=== PATIENT | female | born 1995 | race Caucasian/White ===

== ENCOUNTER 2017-03-29 03:43 | Emergency (ER) | payer MEDICAID | END 2017-03-29 04:00 | disposition left against medical advice (07) | LOC: ER 03:47 | DX: Z00.8 Encounter for other general examination (principal); Z53.21 Procedure and treatment not carried out due to patient leaving prior to being seen by health care provider ==

== ENCOUNTER 2020-08-06 08:39 | Emergency (ER) | payer MEDICAID ==
[~2020-08-06] VITALS: Ht 165.1 cm; Wt 68.0 kg
[2020-08-06 09:13] LABS: BASOPHILS % 0.8 % (0.0-2.0); EOSINOPHILS % 2.9 % (0.0-5.0); HEMATOCRIT. 39.9 % (36.0-48.0); HEMOGLOBIN. 13.5 g/dL (12.0-16.0); LYMPHOCYTES % 25.7 % (20.0-50.0); MEAN CORPUSCULAR HEMOGLOBIN 32.7 pg (28.0-32.0); MEAN CORPUSCULAR VOLUME 97.1 fL (81.0-99.0); MEAN PLATELET VOLUME 8.6 fl (7.4-10.4); MONOCYTES % 5.4 % (2.0-8.0); NEUTROPHILS % 65.2 % (40.0-76.0); PLATELET 309 x1000/uL (130-400); RED BLOOD CELL COUNT 4.11 mill/uL (4.2-5.4); RED CELL DISTRIBUTION WIDTH 12.7 % (11.6-14.6)
[2020-08-06 09:23] LABS: CHLORIDE 106 mEq/L (98-107); ETHANOL BLOOD < 10 mg/dL
[2020-08-06 09:30] LABS: HCG SCREEN NEGATIVE
[2020-08-06] MEDS ORDERED: OLANZAPINE 5MG TABLET ODT PO ONE (09:30)
[2020-08-06] MEDS ORDERED: LORAZEPAM 1MG TABLET PO ONE (09:30)
[2020-08-06] MEDS ORDERED: BACITRACIN ZINC OINT UDPKT TOP ONE (09:30)
[2020-08-06] MEDS ORDERED: LIDOCAINE HCL/PF 1% 10 MG/ML 5ML VIAL IJ ONE (09:30)
[2020-08-06] MEDS ORDERED: TETANUS, DIPHTHERIA, PERTUSSIS VAC/PF 0.5ML (>7YR OLD) IM ONE (09:30)
[2020-08-06 10:02] LABS: CLARITY URINE CLOUDY (CLEAR); COLOR URINE DK YELLOW (YELLOW); KETONES URINE 3+ (NEGATIVE); LEUKOCYTE ESTERASE URINE TRACE (NEGATIVE); NITRITE URINE POSITIVE (NEGATIVE); OCCULT BLOOD URINE NEGATIVE (NEGATIVE); PH URINE 6.5 (4.5-8.0); PROTEIN URINE NEGATIVE (NEGATIVE)
[2020-08-06 10:19] LABS: *AMPHETAMINES SCREEN URINE NEGATIVE (NEGATIVE); *BARBITURATES SCREEN URINE NEGATIVE (NEGATIVE); *BENZODIAZEPINES SCREEN URINE NEGATIVE (NEGATIVE); *COCAINE SCREEN URINE NEGATIVE (NEGATIVE); METHADONE URINE SCREEN NEGATIVE (NEGATIVE); OPIATES URINE SCREEN NEGATIVE (NEGATIVE)
[2020-08-06 10:20] LABS: PHENCYCLIDINE URINE SCREEN NEGATIVE (NEGATIVE)
[2020-08-06 10:21] LABS: CANNABINOID URINE SCREEN PRESUMTIVE POSITIVE (NEGATIVE)
[2020-08-06] MEDS ORDERED: NITROFURANTOIN 100MG M/M CAPSULE PO ONE (10:45)
[2020-08-06] MEDS ORDERED: LORAZEPAM 2MG/ML CPJ IM ONE ×2 (14:30→20:45)
[2020-08-06] MEDS ORDERED: OLANZAPINE 10 MG/VIAL IM ONE (14:30)
[2020-08-06] MEDS ORDERED: HALOPERIDOL LACTATE 5MG/ML VIAL IM ONE (20:45)
[2020-08-07] MEDS: OLANZAPINE 5MG TABLET PO PRN ×2 (09:28→18:48)
[2020-08-07] MEDS: LORAZEPAM 1MG TABLET PO PRN ×2 (09:28→18:48)
[2020-08-07] MEDS ORDERED: NICOTINE 21MG PATCH TD SCH (09:30)
[2020-08-07 21:45] VITALS: BP 109/82
== END 2020-08-07 04:07 | disposition short-term general hospital (02) ==
LOC: ER 08:39
DX: S61.512A Laceration without foreign body of left wrist, initial encounter (principal); N39.0 Urinary tract infection, site not specified; F17.200 Nicotine dependence, unspecified, uncomplicated; Z86.59 Personal history of other mental and behavioral disorders; Z90.49 Acquired absence of other specified parts of digestive tract; Z88.8 Allergy status to other drugs, medicaments and biological substances; W45.8XXA Other foreign body or object entering through skin, initial encounter; Y93.89 Activity, other specified; Y92.89 Other specified places as the place of occurrence of the external cause; Y99.8 Other external cause status; Z20.822 Contact with and (suspected) exposure to COVID-19
CPT/HCPCS: 12004; 36415; 80053; 80305; 80307; 80320; 80329; 81003; 81025; 84703; 85025; 87086; 90471; 90715; 96372; 99285; A4217; C9803; J1630; J2060; J3490; U0003; Z7610; G0480